=== PATIENT | female | born 1955 | race Hispanic/Latino ===

== ENCOUNTER 2023-09-25 11:41 | Emergency (ER) | payer MEDICARE ==
[~2023-09-25] VITALS: Ht 172.7 cm; Wt 108.9 kg
[2023-09-25 12:30] LABS: RAPID GROUP A STREP negative (NEGATIVE)
[2023-09-25 12:37] LABS: SARS-CoV-2, RNA, NAAT NEGATIVE SARS CoV-2 (NEGATIVE)
[2023-09-25] MEDS: KETOROLAC 30MG VIAL (30MG/ML) IVP ONE (13:00)
[2023-09-25 13:11] LABS: INFLUENZA TYPE A Negative For Type A (NEGATIVE); INFLUENZA TYPE B Negative For Type B (NEGATIVE)
[2023-09-25 13:42] LABS: ADD UA MICROSCOPIC YES; APPEARANCE,URINE CLEAR (CLEAR); BILIRUBIN,URINE NEGATIVE (NEGATIVE); COLOR,URINE YELLOW (YELLOW); GLUCOSE, URINE (UA) NEGATIVE (NEGATIVE); KETONES,URINE NEGATIVE (NEGATIVE); LEUKOCYTE ESTERASE ,URINE NEGATIVE Leu/uL (NEGATIVE); NITRATE,URINE NEGATIVE (NEGATIVE); OCCULT BLOOD,URINE NEGATIVE (NEGATIVE); PROTEIN,URINE 30 mg/dL (NEGATIVE); UROBILINOGEN,URINE 0.2 mg/dL (0.2-1.0)
[2023-09-25 13:45] LABS: BASOPHILS # (AUTO) 0.07 K/uL (0.00-0.20); BASOPHILS % (AUTO) 0.7 % (0.0-5.0); EOSINOPHILS # (AUTO) 0.01 K/uL (0.00-0.70); EOSINOPHILS % (AUTO) 0.1 % (0.0-8.0); IMMATURE GRANULOCYTE ABSOLUTE 0.05 K/uL (0-1); MEAN CORPUSCULAR HEMOGLOBIN 29.5 pg (27.0-33.0); MEAN CORPUSCULAR HGB CONC 34.7 g/dL (32.0-36.0); MEAN CORPUSCULAR VOLUME 85.1 fL (79-99); MONOCYTES # (AUTO) 1.5 K/uL (0.1-1.0); MONOCYTES % (AUTO) 14.2 % (3.0-13.0); NEUTROPHILS # (AUTO) 8.1 K/uL (1.8-7.7); NEUTROPHILS % (AUTO) 75.5 % (40.0-77.0); PLATELET COUNT (AUTO) 589 K/uL (130-400); RED BLOOD CELL COUNT(AUTO) 5.05 MIL/uL (4.00-5.50); RED CELL DISTRIBUTION WIDTH 14.2 % (11.0-15.5); WHITE BLOOD COUNT (AUTO) 10.7 K/uL (4.8-10.8)
[2023-09-25 14:00] VITALS: BP 145/80; O2SAT 94
[2023-09-25 14:01] LABS: CREATININE 0.8 mg/dL (0.5-1.5); POTASSIUM 3.5 mmol/L (3.5-5.1)
[2023-09-25 14:06] LABS: ALBUMIN 3.6 g/dL (3.5-5.0); BILIRUBIN,TOTAL 0.5 mg/dL (0.2-1.0); TOTAL PROTEIN, SERUM 7.8 g/dL (6.0-8.3)
[2023-09-25 14:28] LABS: BACTERIA,URINE FEW /HPF (None Seen); CALCIUM OXALATE CRYSTALS,UR MANY /LPF (None Seen); MUCUS,URINE RARE LPF (None Seen); SQUAMOUS EPITHELIAL CELL,UR RARE /HPF (0-2); UNCLASSIFIED CRYSTAL <1 /HPF (None Seen); WBC,URINE 0-1 /HPF (0-1)
[2023-09-25] MEDS: 0.9%NACL 1000ML 1,000 ML IV ONE (15:08)
[2023-09-25] MEDS: ONDANSETRON 4MG INJ IVP ONE (15:08)
[2023-09-25] MEDS: CEFTRIAXONE 1G VIAL IVPB ONE (15:08)
[2023-09-25] MEDS: AZITHROMYCIN 250 MG TABLET PO ONE ×2 (15:09→15:12)
[2023-09-25] MEDS: CEFTRIAXONE 1G VIAL ONE (15:09)
[2023-09-25] MEDS: IPRATROPIUM/ALBUTEROL SULFATE 3 ML SOLUTION IH ONE (15:38)
[2023-09-25 15:39] VITALS: PULSE 80; RESP 18
[2023-09-25] MEDS ORDERED: AZIT250T9 PO (16:02)
== END 2023-09-25 17:11 | disposition home or self-care (01) ==
LOC: EDH 11:41
DX: J18.9 Pneumonia, unspecified organism (principal); K21.9 Gastro-esophageal reflux disease without esophagitis; Z90.49 Acquired absence of other specified parts of digestive tract; Z98.890 Other specified postprocedural states
CPT/HCPCS: 99284; 96374; 71045; 87635; 96375; 80053; 85025; 87040 ×2; 87880; 87804 ×2; 83605; 81001; 36415; 94640; J0696; J2405; J1885